=== PATIENT | female | born 1935 | race Caucasian/White ===

== ENCOUNTER 2017-02-25 06:58 | Day surgery (SDC) | payer OTHER ==
[2017-02-23 15:11] VITALS: BMI 23.6
--- NOTE | 2017-02-24 16:29 | HP ---
- Patient Scheduled date of Surgery: 02/25/17 Scheduled Surgical Procedure: Phacoemulsification and cataract extraction with PCIOL Affected Eye: Left Chief Complaint (Indication for surgery): Decreased vision affecting ADLs - Ocular History Other Eye History: Other (PVD , HTN retinopathy) Eye Medications: vigamox Previous Eye Surgery: none - Medical History Illnesses: Hypertension (parkinson's dz, MVP, anxiety) Current Medications: Ambulatory Orders Atenolol [Tenormin -] 50 mg PO DAILY 02/23/17 Carbidopa/Levodopa/Entacapone [Stalevo 75 -] 1 each PO QID 02/23/17 Paroxetine HCl [Paxil] 30 mg PO DAILY 02/23/17 Pramipexole Di-HCl [Pramipexole ER] 1 mg PO ACDIN 02/23/17 Rasagiline Mesylate [Azilect] 0.5 mg PO DAILY 02/23/17 Allergies/Adverse Reactions: Allergies Allergy/AdvReac Type Severity Reaction Status Date / Time pseudoephedrine HCl Allergy Intermediate Verified 02/23/17 15:20 [From Sudafed] Ocular Examination - Best Corrected Visual Acuity Distance: Right eye: 20/40- Distance: Left eye: 20/40-3 - External/Slit Lamp Examination Abnormalities: papilla, decreased tbut - Intraocular Pressure Intraocular Pressure - Right eye: 17 Intraocular Pressure-Left eye: 17 - Lens Lens: 2+ NS - Vitreous/Retina Vitreous/Retina: C:D 0.1 m/v/p wnl - Special Examination M - Right eye: pl- 2.25 x 085 M - Left eye: 1.75-2.25 x 85 K - Right eye: 45/45.5 x 165 K - Left eye: 44.25/45.5 x 175 AL - Right eye: 23.74 AL - Left eye: 23.37 IOL bag: +19.5 d hoya 251 IOL sulcus: +18.5 d hoya 231 IOL AC: +16.5 d MTA 4uo - Impression Impression: Cataract Left Eye - Plan Plan: Phacoemulsification and cataract extraction - IOL Left eye Post-hospital care will be provided in office on: 02/26/17
--- NOTE | 2017-02-24 18:08 | HP ---
History & Physical Update - History History: No Change - Physical Physical: No Change - Assessment Assessment: No Change - Plan Plan: No Change
[~2017-02-25 06:58] MED LIST: ACETAMINOPHEN 325 MG TABLET (FP) PO PRN; CIPROFLOXACIN HCL 0.3% OPHTH 2.5ML BOTTLE OP SCH; DICLOFENAC SODIUM 0.1% OPHTHALMIC 2.5ML BOTTLE OP SCH; PHENYLEPHRINE 2.5% OPHTH SOLN 15 ML BOTTLE OP SCH; TOBRAMYCIN/DEXAMETHASONE OPHTH. OINTMENT 1 TUBE TP ONE; TROPICAMIDE 1% OPHTH SOLN 15 ML BOTTLE OP SCH
[2017-02-25] MEDS ORDERED: TOBRAMYCIN/DEXAMETHASONE OPHTH. OINTMENT 1 TUBE ONE (07:25)
[2017-02-25] MEDS ORDERED: LIDOCAINE HCL 2% JELLY (5 ML/TUBE) ONE (07:26)
[2017-02-25] MEDS ORDERED: EPINEPHrine/PF 1 MG/1 ML (1:1,000) AMPULE ONE (07:26)
[2017-02-25] MEDS ORDERED: LIDOCAINE HCL/PF 1% SDV 5ML VIAL ONE (07:26)
[2017-02-25] MEDS: TROPICAMIDE 1% OPHTH SOLN 15 ML BOTTLE ONE ×3 (07:30→08:04)
[2017-02-25] MEDS: PHENYLEPHRINE 2.5% OPHTH SOLN 15 ML BOTTLE ONE ×3 (07:30→08:04)
[2017-02-25] MEDS: CIPROFLOXACIN 0.3% EYE DROPS 5 ML BOTTLE ONE ×3 (07:30→08:03)
[2017-02-25] MEDS: DICLOFENAC SODIUM 0.1% OPHTHALMIC 2.5ML BOTTLE ONE ×3 (07:30→08:03)
[2017-02-25 07:50] VITALS: TEMP 98.8
[2017-02-25] MEDS ORDERED: LIDOCAINE HCL 2% JELLY (5 ML/TUBE) TP ONE (08:30)
[2017-02-25] MEDS ORDERED: MIDAZOLAM HCL 2 MG/2 ML SINGLE DOSE VIAL ONE (08:44)
[2017-02-25] MEDS ORDERED: POVIDONE-IODINE 5% OPHTHALMIC PREP 30 ML SOLUTION OS ONE (08:47)
[2017-02-25] MEDS ORDERED: CHONDROITIN SU A/HYALUR SOD 1 KIT IO ONE (08:53)
[2017-02-25] MEDS ORDERED: LIDOCAINE HCL 1% PRESERVATIVE FREE - 30ML VIAL IO ONE (08:53)
[2017-02-25] MEDS ORDERED: BSS (NA/CA/MG/K) BALANCED SALT SOLUTION OPHTH SOLN 15 ML BOTTLE OS ONE (08:53)
[2017-02-25] MEDS ORDERED: EPINEPHrine/PF 1 MG/1 ML (1:1,000) AMPULE SQ ONE (08:57)
[2017-02-25] MEDS ORDERED: TOBRAMYCIN/DEXAMETHASONE OPHTH. OINTMENT 1 TUBE TP ONE (09:15)
--- NOTE | 2017-02-25 09:24 | OP ---
Ophthalmology Operative Note Pre-Operative Diagnosis: Cataract Affected Eye: Left Operation: Phacoemulsification and cataract extraction with PCIOL Findings: cataract left eye Diabetologist: None Anesthesiologist: Suzan Dale MD Anesthesia: Topical Specimens Removed: none Estimated blood loss: none Drains & Tubes with Location: none Operative Report Dictated: Yes
--- NOTE | 2017-02-25 10:01 | OP ---
DATE OF OPERATION: 02/25/2017 PREOPERATIVE DIAGNOSIS: Cataract, left eye. POSTOPERATIVE DIAGNOSIS: Cataract, left eye. PROCEDURE: Phacoemulsification and cataract extraction with insertion of posterior chamber intraocular lens, left eye. SURGEON: Noemi Garcia MD PICKER/PULLER: None. ANESTHESIA: Topical. ANESTHESIOLOGIST: Suzan Dale MD OPERATIVE PROCEDURE: The patient received 2% lidocaine gel and was then brought to the operating room and gently sedated and prepped and draped in the usual sterile fashion so as to expose only the left eye. Ophthalmic Betadine was instilled into the inferior fornix, and the lashes were taped out of the surgical field. An eyelid speculum was placed into the left eye. A paracentesis was made in inferior clear cornea at the limbus. Next, 0.5 mL of nonpreserved lidocaine 1% was injected into the anterior chamber. Viscoelastic material was instilled into the anterior chamber via the paracentesis. A 2.4-mm keratome was then used to create the main incision in temporal clear cornea at the limbus. A continuous curvilinear capsulorrhexis was performed using a cystotome and Utrata forceps. Hydrodissection of the lens cortex was performed using BSS on a cannula until the nucleus was noted to be freely rotating. The phacoemulsification tip was then inserted via the main wound and used to sculpt 2 perpendicular grooves into the lens nucleus. The nucleus was crackled into 4 quadrants using 2 instruments. Each quadrant was lifted out of the capsule into the iris plane and individually phacoemulsified. The remaining cortical material was then aspirated using the irrigation and aspiration port. The capsular bag was inflated using Provisc, and a preloaded Hoya lens model 251, power +19.5 diopters was injected into the capsular bag and centered using a Sinskey hook. The residual viscoelastic material was removed from the anterior chamber using irrigation and aspiration. The wound edges were hydrated using BSS. The wound was tested for leakage and was found to be watertight. Therefore, TobraDex ointment was placed in the eye. The speculum was removed from the eye, and the eyelid was closed. Sterile dressing and shield were placed over the eye, and the patient was transferred to the recovery room in stable condition, told to follow up in 1 day. NOEMI GARCIA M.D. [id number]
[2017-02-25 11:26] VITALS: BP 135/76; PULSE 69
== END 2017-02-25 10:10 | disposition home or self-care (01) ==
LOC: JASU-SURG 06:58
PROVIDERS: ATTEND Ophthalmology
PROC: 08RK3JZ Replacement of Left Lens with Synthetic Substitute, Percutaneous Approach (ICD-10-PCS; principal; 2017-02-25 08:30)
DX: H26.9 Unspecified cataract (principal)